=== PATIENT | female | born 1975 | race Two or more races ===

== ENCOUNTER 2019-11-23 10:34 | Emergency (ER) | payer SELFPAY ==
[~2019-11-23] VITALS: Ht 162.6 cm; Wt 110.6 kg
[2019-11-23] MEDS ORDERED: IOHEXOL 240 MG/ML 50ML VIAL. PO ONE (11:45)
[2019-11-23] MEDS ORDERED: IOHEXOL 300 MG/ML 100ML VIAL. IV ONE (11:45)
[2019-11-23] MEDS ORDERED: CONTRAST GIVEN. MC PRN (11:45)
[2019-11-23 11:46] LABS: BASO % 0 % (0-3); EOS # 0.1 x10^3/uL (0.0-0.7); EOS % 1 % (0-3); HEMATOCRIT 40.1 % (36.0-47.0); HEMOGLOBIN 14.2 g/dL (12.0-15.5); LYMPH # 1.8 x10^3/uL (1.0-4.8); LYMPH % 26 % (24-48); MEAN CORPUSCULAR HEMOGLOBIN 31 pg (25-35); MEAN CORPUSCULAR HGB CONC 35 g/dL (31-37); MEAN CORPUSCULAR VOLUME 89 fL (79-100); MONO # 0.4 x10^3/uL (0.0-1.1); MONO % 6 % (0-9); NEUT # 4.7 x10^3/uL (1.8-7.7); NEUT % 67 % (31-73); PLATELET COUNT 207 x10^3/uL (140-400); RED BLOOD COUNT 4.53 x10^6/uL (3.50-5.40); RED CELL DISTRIBUTION WIDTH 13.4 % (11.5-14.5); WHITE BLOOD COUNT 6.9 x10^3/uL (4.0-11.0)
[2019-11-23 11:49] LABS: CALCIUM 8.5 mg/dL (8.5-10.1); CREATININE 0.6 mg/dL (0.6-1.0); GFR 107.6; POTASSIUM 3.8 mmol/L (3.5-5.1)
[2019-11-23 12:00] LABS: ALBUMIN/GLOBULIN RATIO 1.1 (1.0-1.7); TOTAL BILIRUBIN 0.8 mg/dL (0.2-1.0); TOTAL PROTEIN 7.6 g/dL (6.4-8.2)
[2019-11-23 12:04] LABS: BILIRUBIN,URINE NEGATIVE (NEG); CLARITY,URINE CLEAR; COLOR,URINE YELLOW; NITRITE,URINE NEGATIVE (NEG); PROTEIN,URINE NEGATIVE (NEG-TRACE); UROBILINOGEN,URINE 0.2 mg/dL (0.2 mg/dL)
[2019-11-23 12:15] LABS: SQUAMOUS EPITHELIAL CELL,UR MANY /LPF
[2019-11-23 12:16] LABS: BACTERIA,URINE FEW /HPF (0-FEW); RBC,URINE 0 /HPF (0-2)
[2019-11-23 12:21] VITALS: BP 122/69
[2019-11-23 12:53] LABS: U PREG PATIENT NEGATIVE (NEG)
--- NOTE | 2019-11-23 13:11 | EKG ---
[facility] [address] [place] [id number] Test Date: 2019-11-23 Test Time: 10:56:40 Pat Name: REJI JARVIS Department: Room: Gender: F [employer]: : 1975 Requested By: ZACHARIAH BADILLO Order Number: [id number] Reading MD: Dominick Rosas Measurements Intervals [place] Rate: 57 P: 0 DC: 164 QRS: 76 QRSD: 130 T: 7 QT: 448 QTc: 439 Interpretive Statements SINUS RHYTHM RIGHT BUNDLE BRANCH BLOCK Electronically Signed On 11-23-2019 15:53:24 CDT by Dominick Rosas
--- NOTE | 2019-11-23 13:26 | RAD ---
Examination: CT ABD PELV W/ORAL IV CONTRAST History: Abdominal and back pain Comparison/Correlation: None Findings: Axial images of the abdomen and pelvis were obtained following IV and oral contrast. Sagittal and coronal reformatted images were provided. Lung bases are clear. Liver, spleen, pancreas, adrenal glands, and right kidney are normal. Duplex left collecting system is present. Slight fullness of the left renal lower pole calyces is present. No definite findings of acute obstruction. Appendix is normal. No bowel obstruction. No extraluminal gas. No ascites or pelvic free fluid. Bladder is unremarkable. Minimal fibroid involvement of the superior uterine fundus noted. Facet joint degenerative changes in the lumbar spine are present. Vertebral body heights and disc spaces are adequate. Benign-appearing calcification along the lateral aspect of the right L5 transverse process extending to the sacrum noted. Small umbilical hernia contains identified. Impression: No definite acute process identified. Facet joint degenerative remodeling of the lower lumbar spine. PQRS Compliance Statement: One or more of the following individualized dose reduction techniques were utilized for this examination: 1. Automated exposure control 2. Adjustment of the mA and/or kV according to patient size 3. Use of iterative reconstruction technique Electronically signed by: Ankit Shannon MD (11/23/2019 1:23 PM) [id number]
[2019-11-23] MEDS ORDERED: HYOS0.1265 SL (13:37)
--- NOTE | 2019-11-23 14:55 | PHYS DOC ---
Past Medical History Past Medical History: Diabetes-Type II, High Cholesterol Past Surgical History: No Surgical History Smoking Status: Never Smoker Alcohol Use: None General Adult EDM: Chief Complaint: ABDOMINAL PAIN HPI: HPI: Patient is a 44 year old female who presents with diffuse abdominal pain. Patient states she has been having this problem intermittently for the last 2 years and constantly for the last 8 days. She states that the pain feels achy and is in her back and abdomen. She is also had some constipation for the last 2 days. She states anytime she moves the pain gets worse. Pain is unaffected by eating. She is not tried anything at home for it. She has been to the emergency room at [facility] for the same problem 1 week ago and at that time was diagnosed with some kind of infection and has finished the antibiotics for this. She states she continues to have pain. She denies any fever, nausea, vomiting, diarrhea. Review of Systems: Review of Systems: General: Denies fever, chills, sweats, fatigue Eyes: Denies drainage, blurred vision HENT: Denies rhinorrhea, sore throat Respiratory: Denies cough, shortness of breath, wheezing Cardiac: Denies edema, palpitations, chest pain GI: Denies N/V reports abdominal pain MSK: Denies back pain, neck pain Skin: Denies rash, jaundice Neuro: Denies headache, dizziness Psychiatric: Denies SI/HI Heart Score: Risk Factors: Risk Factors: DM, Current or recent (<one month) smoker, HTN, HLP, family history of CAD, obesity. Risk Scores: Score 0 - 3: 2.5% MACE over next 6 weeks - Discharge Home Score 4 - 6: 20.3% MACE over next 6 weeks - Admit for Clinical Observation Score 7 - 10: 72.7% MACE over next 6 weeks - Early Invasive Strategies Current Medications: Current Medications Medications (Trade) Dose Ordered Sig/Lucy Start Time Stop Time Status Last Admin Dose Admin Info (CONTRAST GIVEN -- Rx MONITORING) 1 each PRN DAILY PRN 11/23/19 11:45 11/23/19 14:20 DC Iohexol (Omnipaque 240 Mg/ml) 50 ml 1X ONCE 11/23/19 11:45 11/23/19 11:46 DC 11/23/19 11:45 50 ML Iohexol (Omnipaque 300 Mg/ml) 75 ml 1X ONCE 11/23/19 11:45 11/23/19 11:46 DC 11/23/19 11:45 75 ML Allergies: Allergies: Allergies Coded Allergies Type Severity Reaction Last Updated Verified No Known Drug Allergies 11/23/19 No Physical Exam: PE: Constitutional: Well developed, well nourished, Cooperative, NAD, non-toxic appearing HEENT: Normocephalic, atraumatic, oropharynx moist, EOMI, PERRL, no drainage from eyes, normal conjunctiva Neck: Supple, normal range of motion, no stridor Cardiovascular: RRR, 2+ radial pulses bilaterally, no edema Respiratory: CTA bilaterally, no respiratory distress, no wheezing/crackles Abdomen: Soft, nontender, nondistended, no masses Skin: Warm, dry, intact Extremities: No obvious deformities Neurologic: Alert and Oriented x3, motor and sensory function grossly normal, no focal deficits Psychologic: Normal affect, normal judgment, normal mood. No SI/HI Current Patient Data: Labs: Laboratory Tests Test 11/23/19 10:50 11/23/19 11:25 Urine Collection Type Void Urine Color Yellow Urine Clarity Clear Urine pH 6.0 (<5.0-8.0) Urine Specific Baxter 1.010 (1.000-1.030) Urine Protein Negative mg/dL (NEG-TRACE) Urine Glucose (UA) Negative mg/dL (NEG) Urine Ketones (Stick) 15 mg/dL (NEG) Urine Blood Negative (NEG) Urine Nitrite Negative (NEG) Urine Bilirubin Negative (NEG) Urine Urobilinogen Dipstick 0.2 mg/dL (0.2 mg/dL) Urine Leukocyte Esterase Trace (NEG) Urine RBC 0 /HPF (0-2) Urine WBC 5-10 /HPF (0-4) Urine Squamous Epithelial Cells Many /LPF Urine Bacteria Few /HPF (0-FEW) Urine Test Negative (NEG) White Blood Count 6.9 x10^3/uL (4.0-11.0) Red Blood Count 4.53 x10^6/uL (3.50-5.40) Hemoglobin 14.2 g/dL (12.0-15.5) Hematocrit 40.1 % (36.0-47.0) Mean Corpuscular Volume 89 fL (79-100) Mean Corpuscular Hemoglobin 31 pg (25-35) Mean Corpuscular Hemoglobin Concent 35 g/dL (31-37) Red Cell Distribution Width 13.4 % (11.5-14.5) Platelet Count 207 x10^3/uL (140-400) Neutrophils (%) (Auto) 67 % (31-73) Lymphocytes (%) (Auto) 26 % (24-48) Monocytes (%) (Auto) 6 % (0-9) Eosinophils (%) (Auto) 1 % (0-3) Basophils (%) (Auto) 0 % (0-3) Neutrophils # (Auto) 4.7 x10^3/uL (1.8-7.7) Lymphocytes # (Auto) 1.8 x10^3/uL (1.0-4.8) Monocytes # (Auto) 0.4 x10^3/uL (0.0-1.1) Eosinophils # (Auto) 0.1 x10^3/uL (0.0-0.7) Basophils # (Auto) 0.0 x10^3/uL (0.0-0.2) Sodium Level 131 mmol/L (136-145) L Potassium Level 3.8 mmol/L (3.5-5.1) Chloride Level 94 mmol/L (98-107) L Carbon Dioxide Level 27 mmol/L (21-32) Anion Gap 10 (6-14) Blood Urea Nitrogen 9 mg/dL (7-20) Creatinine 0.6 mg/dL (0.6-1.0) Estimated GFR (Cockcroft-Gault) 107.6 BUN/Creatinine Ratio 15 (6-20) Glucose Level 138 mg/dL (70-99) H Calcium Level 8.5 mg/dL (8.5-10.1) Total Bilirubin 0.8 mg/dL (0.2-1.0) Aspartate Amino Transferase (AST) 115 U/L (15-37) H Alanine Aminotransferase (ALT) 167 U/L (14-59) H Alkaline Phosphatase 88 U/L (46-116) Total Protein 7.6 g/dL (6.4-8.2) Albumin 4.0 g/dL (3.4-5.0) Albumin/Globulin Ratio 1.1 (1.0-1.7) Lipase 125 U/L (73-393) Laboratory Tests 11/23/19 11:25 Laboratory Tests 11/23/19 11:25 Vital Signs: Vital Signs Date Time Temp Pulse Resp B/P (MAP) Pulse Ox O2 Delivery O2 Flow Rate FiO2 11/23/19 12:21 54 122/69 (86) 97 Room Air 11/23/19 11:10 98.4 18 98.4 EKG: EKG: [] Radiology/Procedures: Radiology/Procedures: CT abdomen pelvis normal [] Course & Med Decision Making: Course & Med Decision Making Pertinent Labs and Imaging studies reviewed. (See chart for details) Patient 44-year-old female presents the emergency room complaining of abdominal pain. Patient is crying on exam but has a relatively benign abdominal exam. This does appear to be a chronic problem. She has never been seen here for this previously. History is limited due to language barrier. Patient given Toradol for pain here in the emergency room. CT abdomen pelvis and abdominal labs were done and were normal. Is unclear at this time what is causing her abdominal pain. We will give the patient referral to primary care so that she can get further evaluation by GI. Patient's test results and vitals while in the ED were fully reviewed and discussed with the patient. Patient is stable and at this time does not need admission to the hospital. We have discussed strict return precautions and the importance of following up with their Primary Care Physician. Patient stated understanding and was given an opportunity to ask any questions. Raymond Disclaimer: Raymond Disclaimer: This electronic medical record was generated, in whole or in part, using a voice recognition dictation system. Departure Departure Impression: Primary Impression: Abdominal pain Disposition: HOME, SELF-CARE Condition: GOOD Referrals: [facility] Patient Instructions: Abdominal Pain, [id number] Scripts Hyoscyamine Sulfate (LEVSIN-SL) 0.125 Mg Tab.subl 0.125 MG SL Q6HRS PRN for PAIN for 7 Days, #10 TAB Prov: ZACHARIAH BADILLO MD 11/23/19 ZACHARIAH BADILLO MD November 23, 2019 14:55
== END 2019-11-23 14:20 | disposition home or self-care (01) ==
LOC: ER 10:34
DX: R10.84 Generalized abdominal pain (principal); E11.9 Type 2 diabetes mellitus without complications; E78.00 Pure hypercholesterolemia, unspecified
CPT/HCPCS: 36415; 74177; 80053; 81001; 81025; 83690; 85025; 93005; 99285; Q9966; Q9967